=== PATIENT | female | born 1960 | race Hispanic/Latino ===

== ENCOUNTER 2019-01-15 13:11 | Emergency (ER) | payer SELFPAY ==
[2019-01-15 15:28] VITALS: BP 108/74
--- NOTE | 2019-01-15 15:29 | Emergency Department Report ---
Blank Doc - Documentation Documentation: 58 y o female presents s/p fall yesterday evening outside states tripped and c mayht fall with hand, cc of right hand pain and swelling Xray acc eval
[2019-01-15] MEDS ORDERED: NORCO 10/325 PO ONE (17:37)
--- NOTE | 2019-01-15 17:38 | XRay Report ---
PROCEDURE: XR HAND 3+V RT TECHNIQUE: Frontal, lateral, oblique views right hand HISTORY: pain/swelling, red COMPARISONS: None FINDINGS: There is a comminuted, angulated and displaced fracture through the proximal metadiaphysis of the pro ximal phalanx of the fifth finger. There appears to be some callus formation. There is evidence of degenerative change of the interphalangeal joints of all digits and of the thumb metacarpal phalangeal joint. The soft tissues are unremarkable. IMPRESSION: 1. Comminuted, angulated and displaced fracture proximal metadiaphysis of the proximal phalanx of the right fifth finger that appears to be subacute with evidence of some callus formation. 2. Degenerative change of the interphalangeal joints of all digits and of the thumb metacarpal phalan geal joint. This document is electronically signed by Rylie Pastor MD., January 15 2019 05:36:41 PM ET
--- NOTE | 2019-01-15 17:40 | XRay Report ---
PROCEDURE: XR KNEE 3V LT TECHNIQUE: Frontal, lateral, oblique views left knee HISTORY: pain COMPARISONS: None FINDINGS: There is no evidence of fracture or subluxation. The joint spaces appear to be maintained. The soft tissues are unremarkable. IMPRESSION: 1. No plain film evidence of acute bony or soft tissue abnormality. This document is electronically signed by Rylie Pastor MD., January 15 2019 05:37:57 PM ET
--- NOTE | 2019-01-15 17:57 | Emergency Department Report ---
ED Fall HPI - General Chief Complaint: Fall Stated Complaint: RT WRIST INJURY Time Seen by Provider: 01/15/19 15:25 Source: patient Mode of arrival: Ambulatory - History of Present Illness Initial Comments: This is a 58-year-old female nontoxic, well nourished in appearance, no acute signs of distress presents to the ED with c/o of right wrist and left knee pain 1 day. Patient stated that she had a mechanical ground level fall outside. Patient denies any other trauma. Denies any head, back, or neck trauma. Patient denies any numbness, tingling, fever, chills, nausea, vomiting, chest pain, shortness of breath, headache, stiff neck. Patient denies any joint swelling or joint redness. Patient stated has some decreased range of motion. Patient denies decreased gait due. Patient denies any allergies. MD Complaint: fall -: This afternoon Fall From: standing Place Fall Occurred: street Loss of Consciousness: none Prolonged Down Time?: no Severity: mild Severity scale (0 -10): 3 Context: tripped/slipped Associated Symptoms: denies. denies: headache, neck pain, numbness, weakness, chest paint, shortness of breath, abdominal pain, hematuria, unable to walk, lightheaded, vertigo, confusion - Related Data Previous Rx's Medication Instructions Recorded Last Taken Type Acetaminophen/Codeine [Tylenol 1 tab PO Q6H PRN #12 tab 01/15/19 Unknown Rx /Codeine # 3 tab] Ibuprofen [Motrin] 600 mg PO Q8H PRN #20 tablet 01/15/19 Unknown Rx Allergies Allergy/AdvReac Type Severity Reaction Status Date / Time No Known Allergies Allergy Unverified 01/15/19 13:26 ED Review of Systems ROS: Stated complaint: RT WRIST INJURY Other details as noted in HPI Constitutional: denies: chills, fever Eyes: denies: eye pain, eye discharge, vision change ENT: denies: ear pain, throat pain Respiratory: denies: cough, shortness of breath, wheezing Cardiovascular: denies: chest pain, palpitations Endocrine: no symptoms reported Gastrointestinal: denies: abdominal pain, nausea, diarrhea Genitourinary: denies: urgency, dysuria, discharge Musculoskeletal: denies: back pain, joint swelling, arthralgia Skin: denies: rash, lesions Neurological: denies: headache, weakness, paresthesias Psychiatric: denies: anxiety, depression Hematological/Lymphatic: denies: easy bleeding, easy bruising ED Past Medical Hx - Past Medical History Previous Medical History?: Yes Hx Psychiatric Treatment: Yes (ANXIETY) - Surgical History Past Surgical History?: No - Social History Smoking Status: Never Smoker - Medications Home Medications: Home Medications Medication Instructions Recorded Confirmed Last Taken Type Acetaminophen/Codeine [Tylenol 1 tab PO Q6H PRN #12 tab 01/15/19 Unknown Rx /Codeine # 3 tab] Ibuprofen [Motrin] 600 mg PO Q8H PRN #20 tablet 01/15/19 Unknown Rx ED Physical Exam - General Limitations: No Limitations General appearance: alert, in no apparent distress - Head Head exam: Present: atraumatic, normocephalic - Eye Eye exam: Present: normal appearance - Neck Neck exam: Present: normal inspection, full ROM. Absent: tenderness, meningismus, lymphadenopathy - Extremities Exam Extremities exam: Present: normal inspection, full ROM, tenderness, normal capillary refill. Absent: joint swelling, calf tenderness - Expanded Upper Extremity Exam Right General: Present: normal inspection Shoulder Exam: Present: normal inspection, full ROM. Absent: tenderness Upper Arm exam: Present: normal inspection, full ROM. Absent: tenderness, swelling Elbow exam: Present: normal inspection, full ROM. Absent: tenderness, swelling Forearm Wrist exam: Present: normal inspection, full ROM. Absent: tenderness, swelling Hand Wrist exam: Present: normal inspection, full ROM, tenderness, swelling, abrasion, ecchymosis. Absent: laceration, deformity, crepidus, dislocation, erythema, amputation, nail avulsion, subungual hematoma Vascular: Present: vascular compromise, normal capillary refill - Expanded Lower Extremity Exam Left Hip exam: Present: normal inspection, full ROM. Absent: tenderness, swelling Upper Leg exam: Present: normal inspection, full ROM. Absent: tenderness, swelling Knee exam: Present: normal inspection, full ROM, tenderness, full knee extension. Absent: swelling, abrasion, laceration, ecchymosis, deformity, crepidus, dislocation, erythema, effusion, pain w/ pronation/supination, posterior draw sign, pain/laxity with valgus, pain/laxity with varus Lower Leg exam: Present: normal inspection, full ROM. Absent: tenderness, swelling Ankle exam: Present: normal inspection, full ROM. Absent: tenderness, swelling Foot/Toe exam: Present: normal inspection, full ROM. Absent: tenderness, swelling Neuro vascular tendon exam: Present: no vascular compromise Gait: Positive: observed and limited by pain - Back Exam Back exam: Present: normal inspection, full ROM. Absent: tenderness, CVA tenderness (R), CVA tenderness (L), muscle spasm, paraspinal tenderness, vertebral tenderness, rash noted - Neurological Exam Neurological exam: Present: alert, oriented X3, normal gait - Psychiatric Psychiatric exam: Present: normal affect, normal mood - Skin Skin exam: Present: warm, dry, intact, normal color. Absent: rash ED Course Vital Signs 01/15/19 15:26 Temperature 98.5 F Pulse Rate 87 Respiratory 16 Rate Blood Pressure 108/74 O2 Sat by Pulse 100 Oximetry - Reevaluation(s) Reevaluation #1: 01/15/19 18:11 Patient is speaking in full sentences with no signs of distress noted. ED Medical Decision Making - Medical Decision Making This is a 58-year-old female that presents with right hand fracture and left knee strain. Patient is stable and was examined by me. I referred patient to an orthopedic doctor for further evaluation for possible MRI. X-ray has been obtained and dictated by the radiologist. Patient is notified of the x-ray report with noted by the patient. Patient does have normal gait with no tenderness and no joint swelling. No ecchymosis. no joint redness or swelling. Not warm to touch. No signs of cellulites present. Patient received a right boxer splint. Post splint assessment: neurovasular intact; normal cap refill <2 second; normal sensation; denies decreaed sensation; normal ROM of digits. . Patient was instructed to RICE therapy. Patient received [place] for pain. Jo-Ann ent stated that her family member, the [place] of her home after discharge due to possible jaws of [place]. Patient is discharged with Motrin. At time of discharge, the patient does not seem toxic or ill in appearance. No acute signs of distress noted. Patient agrees to discharge treatment plan of care. No further questions noted by the patient. Critical care attestation.: If time is entered above; I have spent that time in minutes in the direct care of this critically ill patient, excluding procedure time. ED Disposition Clinical Impression: Right hand fracture Qualifiers: Encounter type: initial encounter Fracture type: closed Qualified Code(s): S62.91XA - Unspecified fracture of right wrist and hand, initial encounter for closed fracture Strain of left knee Qualifiers: Encounter type: initial encounter Qualified Code(s): S86.912A - Strain of unspecified muscle(s) and tendon(s) at lower leg level, left leg, initial encounter Disposition: - TO HOME OR SELFCARE Is pt being admited?: No Does the pt Need Aspirin: No Condition: Stable Instructions: Wrist Injury (ED), Hand Fracture (ED), Knee Pain (ED), Acetaminophen/Codeine (By mouth) Additional Instructions: Follow-up with a orthopedic doctor in 3-5 days or if symptoms worsen and continue return to emergency room as soon as possible. Do not operate any machinery while taking Tylenol with codeine as this may cause drowsiness. Prescriptions: Ibuprofen [Motrin] 600 mg PO Q8H PRN #20 tablet PRN Reason: Pain Acetaminophen/Codeine [Tylenol /Codeine # 3 tab] 1 tab PO Q6H PRN #12 tab PRN Reason: Pain , Severe (7-10) Referrals: SAMANTHA MCLAIN MD [Primary Care Provider] - 3-5 Days PRIMARY CAREMD [Referring] - 3-5 Days EMMA MIRANDA MD [Staff Physician] - 3-5 Days [facility] [Outside] - 3-5 Days Forms: Work/School Release Form(ED)
== END 2019-01-15 18:28 | disposition home or self-care (01) ==
LOC: ED 13:11
DX: S62.91XA Unspecified fracture of right hand, initial encounter for closed fracture (principal); S86.912A Strain of unspecified muscle(s) and tendon(s) at lower leg level, left leg, initial encounter; F41.9 Anxiety disorder, unspecified; W01.0XXA Fall on same level from slipping, tripping and stumbling without subsequent striking against object, initial encounter; Y93.89 Activity, other specified; Y92.89 Other specified places as the place of occurrence of the external cause; Y99.8 Other external cause status

== ENCOUNTER 2019-03-05 09:20 | Emergency (ER) | payer OTHER ==
[2019-03-05 09:32] VITALS: BP 126/81
--- NOTE | 2019-03-05 09:43 | Emergency Department Report ---
ED Rash HPI - HPI Chief Complaint: Animal Bite Stated Complaint: (L) HAND SPIDER BITE/SWELLING Time Seen by Provider: 03/05/19 09:39 Location: Upper Extremities Suspected Cause: Insect Rash Symptoms: No Itching, No Facial Swelling, No Tongue/Oral Swelling, No Breathing Difficulties, No Choking Sensation, No Wheezing/Dyspnea, No Peeling, No Blistering, No Fever, No Lightheaded, No Malaise, No Myalgias Severity: mild Other History: Pt comes to the ER today with 1 insect bite on the proximal right thumb. She was concerned that he needed to be I&D. She states that she thinks the spider that bit her 3 weeks ago. There is no necrosis. This just an area of erythema. Full ROM. Neurovasc intact. ED Review of Systems ROS: Stated complaint: (L) HAND SPIDER BITE/SWELLING Other details as noted in HPI Comment: All other systems reviewed and negative ED Past Medical Hx - Past Medical History Hx Psychiatric Treatment: Yes (ANXIETY) - Surgical History Additional Surgical History: liver laceration, fractured skull - Family History Family history: no significant - Social History Smoking Status: Current Every Day Smoker - Medications Home Medications: Home Medications Medication Instructions Recorded Confirmed Last Taken Type predniSONE [Deltasone] 20 mg PO DAILY #5 tablet 03/05/19 Unknown Rx Rash Exam - Exam General: Vital signs noted. No distress. Alert and acting appropriately. HEENT: No Periorbital Edema, No Conjuctival Injection, No Chemosis, No Perioral Edema, No Tongue Edema Lungs: Yes Good Air Exchange, No Wheezes Heart: Yes Regular, No Murmur Skin: Yes Erythema, No Urticarial Rash, No Maculopapular Rash, No Morbilliform rash, No Bulla(e), No Excoriations, No Weeping, No Tenderness, No Edema, No Encrustations, No Other Other: Positive: Abdomen Normal, Neurologic Normal, Musculoskeletal Normal ED Course Vital Signs 03/05/19 09:30 Temperature 98.2 F Pulse Rate 88 Respiratory 18 Rate Blood Pressure 126/81 O2 Sat by Pulse 98 Oximetry ED Medical Decision Making - Medical Decision Making Patient comes in with one reddened area on her proximal right thumb. She thinks it's an insect bite. It is not an abscess. It is not cellulitic. Patient was just concerned and wanted it checked. There are no systemic symptoms. Her vital signs are stable and she is afebrile. Will DC home with wound care instructions. Vital Signs 03/05/19 09:30 Temperature 98.2 F Pulse Rate 88 Respiratory 18 Rate Blood Pressure 126/81 O2 Sat by Pulse 98 Oximetry Critical care attestation.: If time is entered above; I have spent that time in minutes in the direct care of this critically ill patient, excluding procedure time. ED Disposition Clinical Impression: Insect bite Disposition: PAT REG,NO TRIAGE Is pt being admited?: No Condition: Stable Instructions: Insect Bite or Sting (ED) Additional Instructions: warm compresses and epsom salt soaks do not open or pick at the area DIET TOLERATED MEDS ORDERED TODAY IN ER FOLLOW INSTRUCTIONS ON THE BOTTLE FOLLOW UP PCP WITHIN 48 HOURS TO ENSURE YOU ARE GETTING BETTER ACTIVITY TOLERATED MOTRIN OR TYLENOL FOR PAIN OR FEVER RETURN TO THE ER FOR WORSENING SYMPTOMS NOT RELIEVED BY YOUR MEDICATIONS. Prescriptions: predniSONE [Deltasone] 20 mg PO DAILY #5 tablet Time of Disposition: 09:42
== END 2019-03-05 10:07 | disposition left against medical advice (07) ==
LOC: ED 09:20
DX: S60.361A Insect bite (nonvenomous) of right thumb, initial encounter (principal); F41.9 Anxiety disorder, unspecified; F17.200 Nicotine dependence, unspecified, uncomplicated; W57.XXXA Bitten or stung by nonvenomous insect and other nonvenomous arthropods, initial encounter; Y93.89 Activity, other specified; Y92.89 Other specified places as the place of occurrence of the external cause; Y99.8 Other external cause status
CPT/HCPCS: 99282